=== PATIENT | male | born 1990 | race Caucasian/White ===

== ENCOUNTER 2023-07-28 15:47 | Emergency (ER) | payer SELFPAY ==
--- NOTE | 2023-07-28 15:48 | ED.URI ---
HPI - URI/Sore Throat General Chief Complaint: Upper Respiratory Infection Stated Complaint: Chest Congestion and Back Pain Time Seen by Provider: 07/28/23 16:00 Source: patient and RN notes reviewed Mode of arrival: ambulatory Limitations: no limitations History of Present Illness HPI Narrative: 33-year-old male presents concern for cough, chest congestion, right-sided back pain since Wednesday. Reports he has been taking cough medicines without relief. He denies fever, nasal congestion, rhinorrhea, shortness of breath MD elicited complaint: cough Related Data Allergies Allergy/AdvReac Type Severity Reaction Status Date / Time No Known Allergies Allergy Verified 07/28/23 16:07 Review of Systems Review of Systems: CONSTITUTIONAL: Denies malaise, chills, sweats, or fever. EYES: Denies visual changes, redness, or discharge. ENT: Denies rhinorrhea, congestion, sinus pain, otalgia and sore throat. CARDIOVASCULAR: Denies chest pain, palpitations, or edema. RESPIRATORY: Reports productive cough. Denies dyspnea. GASTROINTESTINAL: Denies abdominal pain, nausea, vomiting, diarrhea SKIN: Denies rash or itching. MUSCULOSKELETAL: Denies myalgia. Reports back pain NEUROLOGIC: Denies headache. All systems reviewed & are unremarkable except as noted in HPI and below PMFSH Comments At time of signature, agree with nursing past medical, surgical, social and family history. There is no relevant family history pertinent to the presenting complaint Exam Narrative: GENERAL: Well-appearing, well-nourished, and in no acute distress. HEAD: Normocephalic EYES: PERRLA, conjunctivae clear ENT: Nares clear. Mucous membranes moist. TM pearly louise with dull light reflex bilaterally; no tragal tenderness. Oropharynx not erythematous without lesions. Tonsils not enlarged and without exudate, no drooling, no hoarseness, no trismus, uvula midline. NECK: Supple. No lymphadenopathy CHEST: Clear to auscultation, breath sounds equal. No wheezing, rhonchi, rales, or stridor. No respiratory distress, speaks in full sentences. Cough noted HEART: Regular rate and rhythm. No murmur heard. SKIN: Warm, dry, no rash. NEURO: Alert and oriented x3. PSYCH: Normal mood and affect Course Course Emergency Course: Patient is aware of diagnosis, understands and agrees to treatment plan. Anticipatory guidance given. Patient agrees to follow-up as directed and is aware of reasons to seek care at the emergency department. Portions of this record may have been created with voice recognition software Level of Care: Express Care Visit Vital Signs Vital signs: Reviewed. MDM - URI/Sore Throat MDM Narrative Medical decision making narrative: Differential diagnosis considered: Cleary virus, strep pharyngitis, allergic rhinitis, upper respiratory tract infection, sinusitis, rhinosinusitis, nasopharyngitis. viral pharyngitis, otitis media, otitis externa, pneumonia, bronchitis, viral cough syndrome, viral syndrome, and influenza. Exam findings show no acute concerns or changes; patient is non-toxic appearing and is in no distress. Patient is appropriate for outpatient treatment and follow-up. Lab Data Attestation: I reviewed the patient's lab results. Critical Care Time Critical Care Time Critical Care Time: No Discharge Plan Discharge Clinical Impression: Upper respiratory infection with cough and congestion Patient Disposition: Home, Self-Care Condition: Stable Instructions: Antibiotic Form, Acute Cough (ED) Additional Instructions: Take medications as prescribed Recommend antihistamine such as Benadryl at night time and Zyrtec or [place] during the day Also, recommend symptomatic treatment includes: rest, fluids, and increase humidity of the air at home. Recommend Acetaminophen as directed on the bottle to reduce fever, pain, headache. Avoid smoking/second-hand smoke. Please schedule a follow-up visit with your personal physician for further ev
[2023-07-28 15:58] VITALS: BP 138/81; PULSE 66; RESP 16; TEMP 37.1; O2SAT 99
== END 2023-07-28 16:15 | disposition home or self-care (01) ==
PROVIDERS: Emergency Provider Nurse Practitioner
DX: J06.9 Acute upper respiratory infection, unspecified (principal)
CPT/HCPCS: 99213; G0463

== ENCOUNTER 2023-10-28 10:20 | Outpatient (CLI) | payer OTHER, SELFPAY ==
[2023-10-28 13:37] LABS: Alanine Aminotransferase 36 U/L (6-50); Albumin Level 4.5 g/dL (3.5-5.1); Alkaline Phosphatase 74 U/L (38-126); Anion Gap 8 mmol/L (8-16); Aspartate Amino Transferase 63 U/L (17-59); Bilirubin,Total 0.7 mg/dL (0.2-1.3); Blood Urea Nitrogen 12 mg/dL (9-20); Calcium 9.4 mg/dL (8.4-10.2); Carbon Dioxide 26 mmol/L (22-30); Chloride 105 mmol/L (98-107); Cholesterol 171 mg/dL (0-200); Estimated Glomerular Filt Rate > 60; Glucose 82 mg/dL (65-110); HDL Direct 61 mg/dL; Sodium 139 mmol/L (137-145); Triglycerides 91 mg/dL (<150)
[2023-10-28 13:48] LABS: LDL Cholesterol Direct 87 mg/dL
== END 2023-10-28 10:21 | disposition home or self-care (01) ==
LOC: ANHGOSHLAB 10:21
PROVIDERS: PCP Emergency Medicine; Visit Provider Emergency Medicine
DX: Z13.220 Encounter for screening for lipoid disorders (principal); Z13.1 Encounter for screening for diabetes mellitus
CPT/HCPCS: 36415; 80053; 80061

== ENCOUNTER 2024-09-09 14:32 | Emergency (ER) | payer OTHER, SELFPAY ==
[2024-09-09 15:00] VITALS: BP 145/90; PULSE 82; RESP 20; TEMP 36.9; O2SAT 100
--- NOTE | 2024-09-09 15:18 | ED.URI ---
HPI - URI/Sore Throat General Chief Complaint: Upper Respiratory Infection Stated Complaint: Chest Congestion, SOB Time Seen by Provider: 09/09/24 15:03 Source: patient and RN notes reviewed Mode of arrival: ambulatory Limitations: no limitations History of Present Illness HPI Narrative: Patient presents today with a one-week history of cough, congestion, chest congestion, and shortness of breath. Denies fever, chest pain, known sick contacts. He has tried Mucinex and DayQuil without relief. Does report history of asthma and states he used to take Advair, but has not had 1 in at least a few years. Patient vapes. Related Data Allergies Allergy/AdvReac Type Severity Reaction Status Date / Time No Known Allergies Allergy Verified 09/09/24 14:59 Review of Systems Review of Systems: CONSTITUTIONAL: Denies body aches, fever, chills, or sweats. EYES: Denies visual changes, redness, or discharge. ENT: Denies rhinorrhea, sore throat, or otalgia.+ congestion CARDIOVASCULAR: Denies chest pain, palpitations, or edema. RESPIRATORY: + cough, chest congestion, shortness of breath GASTROINTESTINAL: Denies abdominal pain, nausea, vomiting, or diarrhea. GENITOURINARY: Denies dysuria or hematuria. SKIN: Denies rash, itching, or wounds. MUSCULOSKELETAL: Denies back pain, joint pain, or myalgia. NEUROLOGIC: Denies headache, numbness, tingling, or weakness. PSYCH: Denies depression or anxiety. [facility] Past Medical History Medical History (Updated 09/09/24 @ 16:07 by Lashon Santos, ESTEFANY, BC) Asthma Dislocation of L4-L5 lumbar vertebra Social History Social History Social History: drinks soda occasionally Smoking status: Current every day smoker Tobacco type: e-cigarettes/vaping Alcohol intake: current Alcohol use details: every other weekend Substance use: current Substance use type: marijuana Do You Feel Safe in your Home?: Yes Lack of Transportation: No Lack of Food: Never True Current Housing: I Have Housing Concerned About Future Housing: No Difficulty Paying Gas/Electric Bills: No Difficulty Paying for Meds: No Currently Unemployed: No Education: High School Diploma/GED Difficulty w/ Childcare or Family Care: No Living arrangements: alone Comments At time of signature, I have reviewed and agree with nursing past medical, surgical, social and family history unless otherwise noted. Please see nursing chart for further information. There is no relevant family history pertinent to the presenting complaint Exam Narrative: GENERAL: Well-appearing, well-nourished HEAD: Normocephalic, atraumatic. EYES: EOMI. No redness or drainage. Conjunctivae normal. ENT: Mucous membranes pink and moist. Nares mildly congested. No rhinorrhea. TMs normal bilaterally. Throat normal. Uvula midline. NECK: Normal AROM. Supple. No lymphadenopathy. CHEST: Patient is hyperventilating, but will calm and speaking complete sentences HEART: Regular rate and rhythm. No murmur appreciated. EXTREMITIES: Normal range of motion. No edema. SKIN: Warm, dry, no rash. Capillary refill normal. Normal skin turgor. NEURO: No focal deficits. Alert and oriented x3. Gait steady. PSYCH: Normal affect. No signs of depression or anxiety. Course Course Level of Care: Express Care Visit Vital Signs Vital signs: Vital Signs Temperature 98.5 F 09/09/24 15:00 Pulse Rate 82 09/09/24 15:00 Respiratory Rate 20 09/09/24 15:00 Blood Pressure 145/90 H 09/09/24 15:00 Pulse Oximetry 100 09/09/24 15:00 Temperature 98.5 F 09/09/24 15:00 Pulse Rate 82 09/09/24 15:00 Respiratory Rate 20 09/09/24 15:00 Blood Pressure 145/90 H 09/09/24 15:00 Pulse Oximetry 100 09/09/24 15:00 Reviewed MDM - URI/Sore Throat MDM Narrative Medical decision making narrative: Patient declined chest x-ray. DuoNeb ordered. Duoneb has helped slow patient's respirations. Patient will be discharged with prescriptions for albuterol and prednisone as well as some Tessalon for his cough. Anticipatory guidance given. Differential Diagnosis Differential diagnosis: Likely upper respiratory infection, viral infection, bronchitis and other (Pneumonia) Discharge Plan Discharge Clinical Impression: Bronchitis Patient Disposition: Home, Self-Care Condition: Stable Instructions: Acute Bronchitis (ED) Additional Instructions: Please take the albuterol, prednisone, and Tessalon Perles as directed. Follow-up with your PCP next week if symptoms are not improving. Go to the ER immediately if symptoms worsen to include fever, chest pain, worsening shortness of breath. Your blood pressure was elevated above 120/80 today at Urgent Care. This puts you above the threshold for follow up. Please schedule a followup visit with your personal physician as soon as possible, for further evaluation and treatment. Even blood pressure exceeding 120/80 may indicate pre-hypertension. Patient Language: Kinyarwanda Prescriptions: New benzonatate 200 mg capsule 200 mg PO TID PRN (Reason: cough) Qty: 20 0RF prednisone 20 mg tablet 40 mg PO DAILY 5 Days Qty: 10 0RF albuterol sulfate 90 mcg/actuation HFA aerosol inhaler 2 inh inhalation Q4-6H PRN (Reason: shortness of breath or wheezing) Qty: 8.5 0RF (DME) BreatheRite MDI Spacer Spacer See Rx Instructions .ROUTE .MEDSUPPLY Qty: 1 0RF Rx Instructions: As directed No Action atovaquone-proguanil [Malarone] 250-100 mg tablet See Rx Instructions PO .COMPLEX Qty: 20 0RF Rx Instructions: take 1 tab once daily x1 day before exposure, during time in area, and x7 days after leaving area PO Follow-up/Referrals: Dewayne Lakhani MD [Primary Care Provider] - Time of Disposition: 16:08
[2024-09-09] MEDS: ALBUTEROL SULFATE NEB 2.5 MG/3 ML INH INHALATION (15:23)
[2024-09-09] MEDS: IPRATROPIUM BR 0.02% INH SOLN 0.5 MG/2.5 ML VIAL INHALATION (15:24)
== END 2024-09-09 16:15 | disposition home or self-care (01) ==
PROVIDERS: Emergency Provider Nurse Practitioner; PCP Emergency Medicine
DX: J40 Bronchitis, not specified as acute or chronic (principal); F17.290 Nicotine dependence, other tobacco product, uncomplicated; J45.909 Unspecified asthma, uncomplicated
CPT/HCPCS: 94640; 99213; G0463

== ENCOUNTER 2025-01-16 15:39 | Emergency (ER) | payer OTHER, SELFPAY ==
[2025-01-16 15:54] VITALS: BP 126/92; PULSE 72; RESP 16; TEMP 36.5; O2SAT 100
--- NOTE | 2025-01-16 17:02 | ED.GENADULT ---
HPI - General Adult General Chief complaint: Ear Stated complaint: Ear Pain Source: patient Mode of arrival: ambulatory Limitations: no limitations History of Present Illness HPI narrative: Patient presents for evaluation of left-sided ear pain. Symptom onset today. Symptoms started abruptly. He hears a bubbling sensation left ear. He has muffled hearing on that side. Denies drainage from the ear. 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 He does admit to vaping. Related Data Allergies Allergy/AdvReac Type Severity Reaction Status Date / Time No Known Allergies Allergy Verified 01/16/25 15:57 Review of Systems Review of Systems: CONSTITUTIONAL: Denies fever, chills, or sweats. EYES: Denies visual changes, redness, or discharge. ENT: reports left ear pain with muffled hearing and a bubbling sensation CARDIOVASCULAR: Denies chest pain, palpitations, or edema. RESPIRATORY: Denies cough or dyspnea. GASTROINTESTINAL: Denies abdominal pain, nausea, vomiting, or diarrhea. GENITOURINARY: Denies dysuria or hematuria. SKIN: Denies rash or itching. MUSCULOSKELETAL: Denies back pain, joint pain, or myalgia. NEUROLOGIC: Denies headache, numbness, dizziness, or weakness. PSYCHIATRIC: Denies anxiety or depression. [facility] Past Medical History Medical History Asthma Dislocation of L4-L5 lumbar vertebra Surgical History Surgical History Hx of myringoplasty Family History Family History Mother Family history non-contributory Social History Social History Social History: drinks soda occasionally Smoking status: Current every day smoker Tobacco type: e-cigarettes/vaping Alcohol intake: current Alcohol use details: every other weekend Substance use: current Substance use type: marijuana Do You Feel Safe in your Home?: Yes Lack of Transportation: No Lack of Food: Never True Current Housing: I Have Housing Concerned About Future Housing: No Difficulty Paying Gas/Electric Bills: No Difficulty Paying for Meds: No Currently Unemployed: No Education: High School Diploma/GED Difficulty w/ Childcare or Family Care: No Living arrangements: alone Exam Narrative: GENERAL: Well-appearing, well-nourished, and in no acute distress. HEAD: Normocephalic, atraumatic. EYES: PERRLA and EOMI. ENT: Nares clear, no rhinorrhea or epistaxis. Mucous membranes moist. Oropharynx without tonsillar hypertrophy exudate or other lesions. left tympanic membrane is erythematous and bulging. There is middle ear fluid present with visible air-fluid line. NECK: Supple. No adenopathy or masses. No carotid bruits or JVD CHEST: Clear to auscultation. No respiratory distress. No wheezes rales or rhonchi HEART: Regular rate and rhythm. No murmur heard. Normal peripheral pulses. ABDOMEN: Soft, nontender, nondistended, normal active bowel sounds. EXTREMITIES: Normal range of motion. No edema. SKIN: Warm, dry, no rash. NEURO: No focal deficits. Alert and oriented x3. PSYCH: Normal mood and affect. Course Course Emergency Course: This is a 34-year-old male who presented for evaluation of left-sided ear pain. He has evidence of otitis media on exam. Will treat with Augmentin. He also has questionable chronic TM perforation with erythema of ear canal. will treat with ofloxacin. Increase hydration. Follow up with primary provider. Go to the ER for worsening symptoms. Patient in agreement with plan care. Level of Care: Express Care Visit Vital Signs Vital signs: Vital Signs Temperature 36.5 C 01/16/25 15:54 Pulse Rate 72 01/16/25 15:54 Respiratory Rate 16 01/16/25 15:54 Blood Pressure 126/92 H 01/16/25 15:54 Pulse Oximetry 100 01/16/25 15:54 Temperature 36.5 C 01/16/25 15:54 Pulse Rate 72 01/16/25 15:54 Respiratory Rate 16 01/16/25 15:54 Blood Pressure 126/92 H 01/16/25 15:54 Pulse Oximetry 100 01/16/25 15:54 Medical Decision Making Vital Signs Vital Signs: Vital Signs Temperature 36.5 C 01/16/25 15:54 Pulse Rate 72 01/16/25 15:54 Respiratory Rate 16 01/16/25 15:54 Blood Pressure 126/92 H 01/16/25 15:54 Pulse Oximetry 100 01/16/25 15:54 Temperature 36.5 C 01/16/25 15:54 Pulse Rate 72 01/16/25 15:54 Respiratory Rate 16 01/16/25 15:54 Blood Pressure 126/92 H 01/16/25 15:54 Pulse Oximetry 100 01/16/25 15:54 Discharge Plan Discharge Clinical Impression: Acute otitis media, left, History of perforation of tympanic membrane Patient Disposition: Home Condition: Stable Instructions: Antibiotic Form, Ear Infection (ED) Patient Language: Chilean Prescriptions: New amoxicillin-pot clavulanate 875-125 mg tablet 1 tablet PO Q12H Qty: 20 0RF ofloxacin 0.3 % drops 10 drp LEFT EAR DAILY 7 Days Qty: 5 0RF No Action benzonatate 200 mg capsule 200 mg PO TID PRN (Reason: cough) Qty: 20 0RF prednisone 20 mg tablet 40 mg PO DAILY 5 Days Qty: 10 0RF albuterol sulfate 90 mcg/actuation HFA aerosol inhaler 2 inh inhalation Q4-6H PRN (Reason: shortness of breath or wheezing) Qty: 8.5 0RF (DME) BreatheRite MDI Spacer Spacer See Rx Instructions .ROUTE .MEDSUPPLY Qty: 1 0RF Rx Instructions: As directed atovaquone-proguanil [Malarone] 250-100 mg tablet See Rx Instructions PO .COMPLEX Qty: 20 0RF Rx Instructions: take 1 tab once daily x1 day before exposure, during time in area, and x7 days after leaving area PO Follow-up/Referrals: Georgia Barnes MD [Physician] - Time of Disposition: 16:20
== END 2025-01-16 16:26 | disposition home or self-care (01) ==
PROVIDERS: Emergency Provider Nurse Practitioner
DX: H66.92 Otitis media, unspecified, left ear (principal); Z86.69 Personal history of other diseases of the nervous system and sense organs; J45.909 Unspecified asthma, uncomplicated; F17.290 Nicotine dependence, other tobacco product, uncomplicated; F12.90 Cannabis use, unspecified, uncomplicated
CPT/HCPCS: 99213; G0463